=== PATIENT | male | born 1955 | race Caucasian/White ===

== ENCOUNTER 2015-12-31 12:28 | Outpatient (RCR) | payer BC, OTHER ==
[2004-11-11 10:44] VITALS: TEMP 98.1
[~2015-12-31 12:28] MED LIST: DILAUDID 4MG TAB4 MG PO; GLUCOPHAGE500 MG/TAB PO; HCTZ 25MG TAB25 MG PO; INDERAL 20MG20 MG PO; LOTREL 5/20 CAP1 CAP PO; MINOXIDIL 2.5 PO; ULTRAM 50MG TAB50 MG PO
== END 2016-03-30 | disposition still patient (30) ==
LOC: MKS.ESL.PT
DX: I87.2 Venous insufficiency (chronic) (peripheral) (principal)

== ENCOUNTER → 2016-04-20 | Outpatient (CLI) | payer BC, OTHER ==
[2004-11-11 10:44] VITALS: TEMP 98.1
[~2016-04-20] MED LIST changes: +ASPIRIN 81M81 MG/TA2 PO; +CEPHALEXIN250 M1 PO; +MULTI VITAMINS1 TAB PO
== END ==
LOC: COL.RAD 10:22
DX: R59.0 Localized enlarged lymph nodes (principal)

== ENCOUNTER → 2016-05-10 | Outpatient (CLI) | payer BC, OTHER ==
[2004-11-11 10:44] VITALS: TEMP 98.1
== END ==
LOC: COL.RAD 07:01
PROVIDERS: Internal Medicine
DX: R59.0 Localized enlarged lymph nodes (principal); N28.1 Cyst of kidney, acquired
CPT/HCPCS: Q9967

== ENCOUNTER 2016-06-24 10:45 | Inpatient (IN) | payer BC, OTHER ==
[~2016-06-24] VITALS: Ht 177.8 cm; Wt 159.2 kg
[~2016-06-24 10:45] MED LIST changes: -ASPIRIN 81M81 MG/TA2 PO; -CEPHALEXIN250 M1 PO; -MULTI VITAMINS1 TAB PO
[2016-06-24] MEDS ORDERED: ASPIRIN 81M81 MG/TA2 PO (10:56)
[2016-06-24] MEDS ORDERED: MULTI VITAMINS1 TAB PO (10:56)
[2016-06-24 11:51] LABS: BASO # 0.1 (0.0-0.2); BASO % 0.4 % (0.0-2.0); EOS # 0.1 (0.0-0.7); EOS % 0.9 % (0-4.0); GRAN # 9.6 (1.4-6.5); GRAN % 79.4 % (42.2-75.2); LYMPH # 0.9 (1.2-3.4); LYMPH % 7.5 % (20.0-51.0); MEAN CELL VOLUME 88 fl (80.0-100.0); MEAN CORPUSCULAR HGB CONC 34 g/dl (33.0-37.0); MEAN PLATELET VOLUME 11.2 fl (7.4-10.4); MONO # 1.4 (0.1-0.6); MONO % 11.3 % (1.7-9.3); PLATELET COUNT 277 K/mm3 (130-400); REDCELL DISTRIBUTION WIDTH-CV 12.8 % (11.5-14.5); WHITE BLOOD COUNT 12.1 K/mm3 (4.8-10.8)
[2016-06-24 11:52] LABS: HEMATOCRIT 34.3 % (42.0-52.0); HEMOGLOBIN 11.5 g/dl (13.5-18.0); MEAN CORPUSCULAR HEMOGLOBIN 29 pg (27.0-31.0)
[2016-06-24 12:02] LABS: ADJUSTED CALCIUM 9.4 mg/dL (8.4-10.2); ALBUMIN 3.8 gm/dL (3.5-5.0); BILIRUBIN,TOTAL 1.1 mg/dL (0.0-1.0); CALCIUM 9.2 mg/dL (8.4-10.2); CREATININE, serum 1.03 mg/dL (0.66-1.25); POTASSIUM 3.2 mmol/L (3.4-5.0); TOTAL PROTEIN 7.2 gm/dL (6.4-8.2)
[2016-06-24 12:40] LABS: C-REACTIVE PROTEIN 18.8 mg/dL (0.0-0.9)
[2016-06-24 14:06] VITALS: BP 118/58; PULSE 77; TEMP 100
[2016-06-24 14:11] VITALS: BP 118/58; PULSE 77; TEMP 100
[2016-06-24 17:49] VITALS: BP 120/59; PULSE 85; TEMP 100.2
[2016-06-24 21:00] VITALS: BP 145/38; PULSE 91; TEMP 99.9
[2016-06-25 02:18] VITALS: BP 124/41; PULSE 85; TEMP 98.4
[2016-06-25 05:39] VITALS: BP 131/46; PULSE 64; TEMP 99.6
[2016-06-25 08:15] LABS: ADD PATHOLOGY DIFF REVIEW NO
[2016-06-25 08:19] LABS: MEAN CELL VOLUME 89 fl (80.0-100.0); MEAN CORPUSCULAR HGB CONC 33 g/dl (33.0-37.0); MEAN PLATELET VOLUME 10.9 fl (7.4-10.4); PLATELET COUNT 261 K/mm3 (130-400); RED BLOOD COUNT 3.65 M/mm3 (4.20-5.60); REDCELL DISTRIBUTION WIDTH-CV 12.6 % (11.5-14.5); WHITE BLOOD COUNT 7.7 K/mm3 (4.8-10.8)
[2016-06-25 08:20] LABS: HEMATOCRIT 32.5 % (42.0-52.0); HEMOGLOBIN 10.8 g/dl (13.5-18.0); MEAN CORPUSCULAR HEMOGLOBIN 30 pg (27.0-31.0)
[2016-06-25 08:29] LABS: CALCIUM 8.7 mg/dL (8.4-10.2); CREATININE, serum 0.82 mg/dL (0.66-1.25); POTASSIUM 3.1 mmol/L (3.4-5.0)
[2016-06-25 09:27] LABS: BAND 5 % (0-10); BASOPHIL 1 % (0-2); NEUTROPHILS 68 % (42.0-75.2); TOTAL CELLS COUNTED 100
[2016-06-25 09:28] LABS: PLATELET ESTIMATE NORMAL (NORMAL)
[2016-06-25 10:07] VITALS: BP 135/45; PULSE 59; TEMP 97.8
[2016-06-25] MEDS ORDERED: CEPHALEXIN250 M1 PO (12:19)
== END 2016-06-25 13:20 | disposition home or self-care (01) | DRG 863 ==
LOC: COL.ER 10:45 → SURG 12:49
PROVIDERS: Physician Assistant; Surgery
DX: T81.4XXA Infection following a procedure, initial encounter (principal); L03.314 Cellulitis of groin; Z68.43 Body mass index [BMI] 50.0-59.9, adult; B96.1 Klebsiella pneumoniae [K. pneumoniae] as the cause of diseases classified elsewhere; B95.61 Methicillin susceptible Staphylococcus aureus infection as the cause of diseases classified elsewhere; I10 Essential (primary) hypertension; E11.9 Type 2 diabetes mellitus without complications; E66.9 Obesity, unspecified
CPT/HCPCS: J0690

== ENCOUNTER → 2017-06-27 | Outpatient (CLI) | payer BC ==
[~2017-06-27] MED LIST changes: +ASPIRIN 81M81 MG/TA2 PO; +CEPHALEXIN250 M1 PO; +MULTI VITAMINS1 TAB PO
[2017-06-27 09:56] LABS: C-REACTIVE PROTEIN 1.6 mg/dL (0.0-0.9); CALCIUM 9.2 mg/dL (8.4-10.2); CREATININE, serum 0.89 mg/dL (0.66-1.25); POTASSIUM 4.6 mmol/L (3.4-5.0)
== END ==
LOC: COL.LAB 09:22
PROVIDERS: Nurse Practitioner Family
DX: L03.115 Cellulitis of right lower limb (principal); E87.6 Hypokalemia; M79.89 Other specified soft tissue disorders

== ENCOUNTER → 2017-07-12 | Outpatient (CLI) | payer BC | LOC: COL.RAD 08:04 | DX: I87.2 Venous insufficiency (chronic) (peripheral) (principal); R59.0 Localized enlarged lymph nodes; L03.115 Cellulitis of right lower limb ==

== ENCOUNTER → 2018-09-10 | Outpatient (CLI) | payer BC | LOC: COL.RAD 08:06 | DX: Z01.812 Encounter for preprocedural laboratory examination (principal); M47.26 Other spondylosis with radiculopathy, lumbar region; M48.07 Spinal stenosis, lumbosacral region; M46.86 Other specified inflammatory spondylopathies, lumbar region; M51.16 Intervertebral disc disorders with radiculopathy, lumbar region; Z98.890 Other specified postprocedural states | CPT/HCPCS: A9585 ==

== ENCOUNTER 2018-10-28 13:14 | Outpatient (RCR) | payer BC | END 2019-01-26 | disposition still patient (30) | LOC: MKS.ESL.PT | DX: M51.9 Unspecified thoracic, thoracolumbar and lumbosacral intervertebral disc disorder (principal) ==

== ENCOUNTER 2021-04-06 08:22 | Day surgery (SDC) | payer MEDICARE, BC ==
[~2021-04-06] VITALS: Ht 177.8 cm; Wt 158.7 kg
[2021-04-06] VITALS (11 sets, daily range): BP systolic 133–164; BP diastolic 54–98; PULSE 50–72; TEMP 97.7–99
[~2021-04-06 08:22] MED LIST changes: +BETAPACE 80MG80 MG PO; +COREG12.5 MG PO; +ELIQUIS 5MG PO; +FLONASEALLERGY NS; +LIPITOR 10MG10 MG PO
[2021-04-06 08:59] LABS: HEMOGLOBIN 11.7 g/dl (13.5-18.0); MEAN CELL VOLUME 90 fl (80.0-100.0); MEAN CORPUSCULAR HEMOGLOBIN 29 pg (27-31); MEAN CORPUSCULAR HGB CONC 32 g/dl (33.0-37.0); MEAN PLATELET VOLUME 10.6 fl (7.4-10.4); PLATELET COUNT 209 K/mm3 (130-400); RED BLOOD COUNT 4.08 M/mm3 (4.20-5.60); REDCELL DISTRIBUTION WIDTH-CV 14.2 % (11.5-14.5)
[2021-04-06 09:01] LABS: HEMATOCRIT 36.7 % (42.0-52.0)
[2021-04-06 09:07] LABS: INR 1.2 (0.8-3.0); PROTHROMBIN TIME 13.5 SECONDS (9.7-12.8)
[2021-04-06] MEDS ORDERED: BETAPACE 80MG80 MG PO (09:09)
[2021-04-06 09:21] LABS: CALCIUM 9.4 mg/dL (8.4-10.2); CREATININE, serum 0.8 mg/dL (0.72-1.25); POTASSIUM 3.7 mmol/L (3.5-4.5)
--- NOTE | 2021-04-06 10:03 | NUR ---
SEE MERGE FOR ALL MEDICATION ADMINISTRATION TIMES/DOSAGES AND INTRA/POST PROCEDURE SEDATION ASSESSMENTS.
--- NOTE | 2021-04-06 17:54 | NUR ---
1200 PT TO FLOOR AT THIS TIME. ALERT AND ORIENTED. MEDICATIONS REVIEWED IN EMAR. NO COMPLAINTS OF PAIN. TIN CAN FEEDER ON. POST OP VITALS. ROOM AIR.
--- NOTE | 2021-04-06 17:55 | NUR ---
1400 PT TOLERATES LUNCH AND WATER. 1430 PT STANDS IN ROOM INDEPENDENTLY. AMBULATES TO BATHROOM. VOIDS. PT DENIES DIZZINESS AT THIS TIME.
--- NOTE | 2021-04-06 17:56 | NUR ---
1700 VSS. PT SITTING UP ON COUCH EATING DINNER. NO COMPLAINTS OF PAIN. TOLERATING ICE PACK OVER INCISION SITE. PT REPORTS VOIDED 2X.
[2021-04-07 00:30] VITALS: BP 118/49; PULSE 69; TEMP 99
[2021-04-07 04:00] VITALS: BP 127/56; PULSE 66; TEMP 99.1
[2021-04-07 07:44] VITALS: BP 158/72; PULSE 76; TEMP 99.2
--- NOTE | 2021-04-07 10:12 | NUR ---
Initial visit; Patient thanked Crisis Specialist for visit and states his experience at our hospital has been a very good one and he is doing well.
[2021-04-07] MEDS ORDERED: BETAPACE 120MG120 MG PO (11:01)
[2021-04-07] MEDS ORDERED: CEPHALEXIN500 M1 PO (11:02)
[2021-04-07 11:55] VITALS: BP 138/82; PULSE 78; TEMP 98.1
--- NOTE | 2021-04-07 12:13 | NUR ---
1150 ALL DISCAHRGE INSTRUCTIONS GIVEN TO PATIENT AND , VERBAL UNDERSTANDING NOTED. 1200 AMBULATE TO POV WITH THIS NURSE AND
== END 2021-04-07 12:00 | disposition home or self-care (01) ==
LOC: COL.CAR 08:22 → OB 12:00 → COL.CAR 04-07 12:00
PROVIDERS: Internal Medicine Cardiovascular Disease
DX: I48.19 Other persistent atrial fibrillation (principal); I49.5 Sick sinus syndrome; I27.0 Primary pulmonary hypertension; R73.03 Prediabetes; E66.9 Obesity, unspecified; G47.33 Obstructive sleep apnea (adult) (pediatric); Z79.82 Long term (current) use of aspirin; Z79.84 Long term (current) use of oral hypoglycemic drugs; Z79.899 Other long term (current) drug therapy; Z95.0 Presence of cardiac pacemaker; Z79.01 Long term (current) use of anticoagulants; Z99.89 Dependence on other enabling machines and devices; Z68.43 Body mass index [BMI] 50.0-59.9, adult; Z83.3 Family history of diabetes mellitus
CPT/HCPCS: OP; C1785; C1894; C1898; J0282; J0690; J2250; J3010; J3475; J7040; Q9967

== ENCOUNTER 2021-05-18 07:21 | Day surgery (SDC) | payer MEDICARE, BC ==
[2004-11-07 11:03] VITALS: BP 142/81
[~2021-05-18] VITALS: Ht 177.8 cm; Wt 165.7 kg
[2021-05-18] VITALS (7 sets, daily range): BP systolic 131–139; BP diastolic 70–84; PULSE 62–71; TEMP 98.4
[~2021-05-18 07:21] MED LIST changes: +BETAPACE 120MG120 MG PO; +CEPHALEXIN500 M1 PO
[2021-05-18 08:31] LABS: HEMOGLOBIN 11.3 g/dl (13.5-18.0); MEAN CELL VOLUME 91 fl (80.0-100.0); MEAN CORPUSCULAR HEMOGLOBIN 29 pg (27-31); MEAN CORPUSCULAR HGB CONC 32 g/dl (33.0-37.0); MEAN PLATELET VOLUME 10.7 fl (7.4-10.4); PLATELET COUNT 240 K/mm3 (130-400); RED BLOOD COUNT 3.92 M/mm3 (4.20-5.60); REDCELL DISTRIBUTION WIDTH-CV 14.7 % (11.5-14.5)
[2021-05-18 08:33] LABS: HEMATOCRIT 35.5 % (42.0-52.0)
[2021-05-18 08:39] LABS: INR 1.7 (0.8-3.0); PROTHROMBIN TIME 18.5 SECONDS (9.7-12.8)
[2021-05-18 08:41] LABS: PARTIAL THROMBOPLASTIN TIME 44.6 SECONDS (26.0-37.0)
[2021-05-18] MEDS ORDERED: BETAPACE 120MG120 MG PO (09:01)
[2021-05-18 09:14] LABS: CALCIUM 9.1 mg/dL (8.4-10.2); CREATININE, serum 0.81 mg/dL (0.72-1.25); MAGNESIUM 2.2 mg/dL (1.6-2.6)
[2021-05-18 09:51] LABS: THYROID STIMULATING HORMONE 3.238 uIU/mL (0.350-4.940)
--- NOTE | 2021-05-18 11:30 | NUR ---
Discharge instructions given to pt.Pt verbalizes understanding.INT removed,catheter tip intact.Pt escorted out via wheelchair by this nurse.
== END 2021-05-18 12:06 ==
LOC: COL.CAR 07:21
PROVIDERS: Internal Medicine Cardiovascular Disease
DX: I48.0 Paroxysmal atrial fibrillation (principal); I45.10 Unspecified right bundle-branch block; Z79.01 Long term (current) use of anticoagulants; Z79.899 Other long term (current) drug therapy
CPT/HCPCS: J2704; J7120

== ENCOUNTER 2022-01-20 09:15 | Outpatient (RCR) | payer MEDICARE, BC ==
[~2022-01-20 09:15] MED LIST changes: +DOXYCYCLINE 10100 MG PO; +GLUCOPHAGE1000 MG PO; +K-TAB20 PO
== END 2022-01-23 | disposition home or self-care (01) ==
LOC: WSPT
DX: I89.0 Lymphedema, not elsewhere classified (principal)

== ENCOUNTER 2023-08-01 05:20 | Day surgery (SDC) | payer MEDICARE, BC ==
[~2023-08-01 05:20] MED LIST changes: +LOTENSIN20 MG PO; +NORCO 325 MG-51 TAB PO; +OMEGA-3 1000 MG1 CAP PO
[2023-08-01] MEDS ORDERED: Tranexamic Acid 1,000 MG/10 ML VIAL ONE (06:43)
[2023-08-01] MEDS ORDERED: Midazolam 2 MG/2 ML VIAL ONE (06:43)
[2023-08-01] MEDS ORDERED: dexAMETHasone 10 MG/ML VIAL ONE (06:43)
[2023-08-01] MEDS ORDERED: NS 20 ML IV ONE (06:43)
[2023-08-01] MEDS ORDERED: Famotidine 20 MG TAB PO SCH (07:00)
[2023-08-01] MEDS ORDERED: NS 1,000 ML IV SCH (07:00)
[2023-08-01] MEDS ORDERED: Thrombin Human (Recombinant) 5,000 UNITS VIAL TP ONE (08:15)
[2023-08-01] MEDS ORDERED: Morphine 4 MG/ML VIAL IM ONE (08:15)
[2023-08-01] MEDS ORDERED: NS 10 ML VIAL IJ ONE (08:15)
[2023-08-01] MEDS ORDERED: Ketorolac 30 MG/ML VIAL IM ONE (08:15)
[2023-08-01] MEDS ORDERED: diphenhydrAMINE 50 MG CAP PO PRN (10:00)
[2023-08-01] MEDS ORDERED: traMADol 50 MG TAB PO PRN (10:00)
[2023-08-01] MEDS ORDERED: oxyCODONE/Acetaminophen 5-325 MG TAB PO PRN (10:00)
[2023-08-01] MEDS ORDERED: Morphine 4 MG/ML VIAL IV PRN (10:00)
[2023-08-01] MEDS ORDERED: Promethazine 25 MG TAB PO PRN (10:00)
[2023-08-01] MEDS ORDERED: Acetaminophen 500 MG TAB PO PRN (10:00)
[2023-08-01] MEDS ORDERED: ceFAZolin 2 G in Water For Injection,Sterile 20 ML IV SCH (18:00)
[2023-08-01] MEDS ORDERED: Apixaban 2.5 MG TABLET PO SCH (21:00)
[2023-08-02] MEDS ORDERED: Minoxidil 2.5 MG TAB PO SCH (09:00)
[2023-08-02] MEDS ORDERED: amLODIPine 5 MG TAB PO SCH (09:00)
[2023-08-02] MEDS ORDERED: hydroCHLOROthiazide 25 MG TAB PO SCH (09:00)
[2023-08-02] MEDS ORDERED: Celecoxib 200 MG CAP PO SCH (09:00)
--- NOTE | 2023-08-02 16:17 | NUR ---
out of school hours care worker met with patient and his , Senhal, P# [phone] to discuss discharge planning. Patient lives in [place] with his . PCP is Tomasz Cardenas, [facility]acy [facility]. Patient reports his Eliquis is expensive but they are managing it. SW explained there is [facility] as well as recommended contacting his pharmacist if it gets to be too costly. Insurance is Medicare A and B and BCBS. Patient has Medicare [employer] for prescriptions. No DPOA-HC and not interested in completing one at this time. Patient will be using a walker at discharge. Patient was independent with [facility] prior to hospitalization. Patient reports he has outpatient PT scheduled at [facility] and his is going to call and get his appointments lined up at discharge. Discharge plan: Home with OP PT
[2023-08-02] MEDS ORDERED: Atorvastatin 10 MG TAB PO SCH (21:00)
== END 2023-08-02 12:00 | disposition home or self-care (01) ==
LOC: SURG 05:20 → INPTSU 05:20 → SDCO 05:20 → SURG 05:21 → SDCO 07:30 → EDSTATUS 07:30 → INPTSU 15:00 → SURG 15:00 → SDCO 08-02 12:00
DX: M17.12 Unilateral primary osteoarthritis, left knee (principal); I49.5 Sick sinus syndrome; G47.33 Obstructive sleep apnea (adult) (pediatric); E11.9 Type 2 diabetes mellitus without complications; Z95.0 Presence of cardiac pacemaker; Z79.01 Long term (current) use of anticoagulants; Z79.84 Long term (current) use of oral hypoglycemic drugs
CPT/HCPCS: OP; C1713; C1776; J0690; J1100; J1580; J1885; J2250; J2270; J2704; J2795